=== PATIENT | female | born 1945 | race Caucasian/White ===

== ENCOUNTER 2021-08-31 11:47 | Inpatient (IN) ==
[2021-08-31 11:55] VITALS: BMI 37.4
--- NOTE | 2021-08-31 12:23 | DR.URIAD ---
HPI Time Seen Time Seen by Provider: 08/31/21 12:20 PCP Primary Care Physician: Chano HPI Comment HPI Comment: PATIENT WITH A HISTORY OF HYPERTENSION, CHRONIC SINUSITIS, COMPLAINS OF WORSENING DYSPNEA X 1 MONTH, NONPRODUCTIVE COUGH. DENIES FEVER, CHILLS, CHEST PAIN, ARTHRALGIA, DIAPHORESIS AND PALPITATIONS. Complaint Chief Complaint Doctors Comments: DYSPNEA FOR 1 MONTH Chief Complaint:: Pt c/o sinus infection x several months. She states she has had gradual onset of shortness of breath x 1 month. She also c/o nonproductive cough. COVID-19 Coronavirus risk:travel/contact w/high risk person: No Has patient experienced Coronavirus symptoms: Yes Coronavirus symptoms experienced: Fever and Shortness of Breath Reviewed Nurses Notes Reviewed: Yes Source History Provided: Patient Mode of Arrival Mode of Arrival: Wheelchair Timing Onset of Chief Complaint: 08/31/21 Quality Quality of Cough: Nonproductive Associated Signs and Symptoms Other Signs and Symptoms: Cough and Shortness of Breath PMH PMH Past Medical History: Yes Past Medical History: Hypertension Past Surgical History: Yes Surgical History: Ortho Surgery Family History History of Family Medical Conditions: Yes Family Medical History: Cancer Social History Does patient currently use any type of tobacco product: No Have you used tobacco products in the last 12 months: No Type of Tobacco Use: None Does any household member use tobacco: No Alcohol Use: None Do you use any recreational Drugs:: No Lives With: Alone Lives Where: Home Travel Risk Coronavirus risk:travel/contact w/high risk person: No Has patient experienced Coronavirus symptoms: Yes Coronavirus symptoms experienced: Fever and Shortness of Breath Infectious screening In the last 2 months have you had wt loss of >10#?: NO Have you had fever, night sweats or hemotysis?: No Have you traveled outside the country in the last 6 months?: No Isolation: Droplet ROS Review of Systems Constitutional: See HPI Eyes: No Symptoms Reported ENTM: No Symptoms Reported Respiratoy: See HPI, Dry Cough and Short of Breath Cardiovascular: No Symptoms Reported Gastrointestinal/Abdominal: No Symptoms Reported Genitourinary: No Symptoms Reported Neurological: No Symptoms Reported Musculoskeletal: No Symptoms Reported Integumentary: No Symptoms Reported Hematologic/Lymphatic: No Symptoms Reported Endocrine: No Symptoms Reported Psychiatric: No Symptoms Reported All Other Systems: Reviewed and Negative PE Vital Signs Vitals: Temperature 100.4 F Pulse Rate 87 Respiratory Rate 27 Blood Pressure 133/61 O2 Sat by Pulse Oximetry 100 General Limitations: No Limitations General Appearance: Alert and In Distress (MODERATE TACHYPNEA) Head Head Exam: Normal Inspection Eyes Eye exam: Normal Appearance and PERRL ENT ENT Exam: Normal Exam and Normal Oropharynx External Ear Exam: Normal External Inspection TM/Canal Exam: Bilateral: Normal Neck Neck Exam: Normal Inspection and Full ROM Chest Chest Inspection: Normal Inspection and Symmetric Chest Wall Rise Respiratory Respiratory Exam: Normal Lung Sounds Bilat and Other (MODERATE TACHYPNEA, LABORED BREATHING) Respiratory Exam: Bilateral: Decreased Breath Sounds Cardiovascular Cardiovascular Exam: Regular Rate, Normal Rhythm and Tachycardia Abdominal Exam Abdominal Exam: Normal Inspection and Normal Bowel Sounds Extremeties Extremities Exam: Normal Inspection and Full ROM Back Back Exam: Full ROM Neurologic Neurological Exam: Alert and Oriented X3 MDM Additional Information Findings: ACUTE DYSPNEA, PULMONARY EMBOLISM Differential Diagnosis Differential Diagnosis: Influenza A, Influenza B and Pneumonia COURSE Treatment Treatment: IV NORMAL SALINE 250ML/HR AFTER 2 SETS OF BLOOD CULTURES, ROCEPHIN 1GM, ZITHROMAX 500MG IVPB, SOLUMEDROL 125MG IV, CONTINUOUS DUO NEB AEROSOL FOR 1 HOUR Consultation Call Returned: 15:50 Consultation Comments: DISCUSSED FINDINGS WITH DR MOJICA FOR INPATIENT ADMISSION [facility] Labs Reviewed Laboratory Results Reviewed?: Yes Result Diagrams: 08/31/21 12:07 08/31/21 12:07 Laboratory: WBC 12.5 X10^3/uL (3.6-10.0) H 08/31/21 12:07 RBC 4.44 X10^6/uL (3.5-5.4) 08/31/21 12:07 Hgb 11.4 g/dL (12.0-16.0) L 08/31/21 12:07 Hct 34.5 % (36.0-47.0) L 08/31/21 12:07 MCV 77.6 fL (80.0-100.0) L 08/31/21 12:07 MCH 25.8 pg (27.0-34.0) L 08/31/21 12:07 MCHC 33.2 g/dL (33.0-35.0) 08/31/21 12:07 RDW 15.4 % (11.6-16.5) 08/31/21 12:07 Plt Count 480 X10^3/uL (150.0-450.0) H 08/31/21 12:07 MPV 6.9 fL (7.4-11.0) L 08/31/21 12:07 Neut % (Auto) 86.5 % (42.0-75.0) H 08/31/21 12:07 Lymph % (Auto) 5.1 % (21.0-51.0) L 08/31/21 12:07 [place] % (Auto) 5.6 % (0.0-13.0) 08/31/21 12:07 Eos % (Auto) 2.1 % (0.9-2.9) 08/31/21 12:07 Baso % (Auto) 0.7 % (0.2-1.0) 08/31/21 12:07 Neut # (Auto) 10.8 x10^3/uL (2.2-4.8) H 08/31/21 12:07 Lymph # (Auto) 0.6 X10^3/uL (1.3-2.9) L 08/31/21 12:07 [place] # (Auto) 0.7 x10^3/uL (0.3-0.8) 08/31/21 12:07 Eos # (Auto) 0.3 x10^3/uL (0.0-0.2) H 08/31/21 12:07 Baso # (Auto) 0.1 X10^3/uL (0.0-0.1) 08/31/21 12:07 Absolute Nucleated RBC 0.1 /100WBC 08/31/21 12:07 D-Dimer 2.29 ug/ml (0.0-0.57) H* 08/31/21 12:07 Sample Site Lrad 08/31/21 12:47 ABG pH 7.480 (7.35-7.45) H 08/31/21 12:47 ABG pCO2 31.0 mmHg (35.0-45.0) L 08/31/21 12:47 ABG pO2 49.0 mmHg (80.0-100.0) L* 08/31/21 12:47 ABG HCO3 23.1 mmol/L (22-26) 08/31/21 12:47 ABG O2 Saturation 87.0 % (90-100) L 08/31/21 12:47 ABG Base Excess 0.3 mmol/L (-2.0-2.0) 08/31/21 12:47 Hector Test Pos 08/31/21 12:47 A-a Gradient 62.0 mmHg 08/31/21 12:47 FiO2 21.0 08/31/21 12:47 Blood Gas Comments Pt maddy well elj cdn 08/31/21 12:47 Sodium 134 mmol/L (136-145) L 08/31/21 12:07 Corrected Sodium 134 mmol/L (136-145) L 08/31/21 12:07 Potassium 4.6 mmol/L (3.5-5.1) 08/31/21 12:07 Chloride 101 mmol/L (98-107) 08/31/21 12:07 Carbon Dioxide 25.0 mmol/L (21-32) 08/31/21 12:07 BUN 15 mg/dL (7-18) 08/31/21 12:07 Creatinine 0.92 mg/dL (0.55-1.02) 08/31/21 12:07 Est GFR (MDRD) Af Amer > 60 (>60) 08/31/21 12:07 Est GFR (MDRD) Non-Af > 60 (>60) 08/31/21 12:07 Glucose 117 mg/dL (65-99) H 08/31/21 12:07 Lactic Acid 0.9 mmol/L (0.4-2.0) 08/31/21 12:07 Calcium 9.2 mg/dL (8.5-10.1) 08/31/21 12:07 Corrected Calcium 9.8 mg/dL (8.5-10.1) 08/31/21 12:07 Magnesium 2.1 mg/dL (1.7-2.9) 08/31/21 12:07 Total Bilirubin 0.70 mg/dL (0.2-1.0) 08/31/21 12:07 AST 20 Units/L (15-37) 08/31/21 12:07 ALT 10 Units/L (12-78) L 08/31/21 12:07 Alkaline Phosphatase 97 Units/L (46-116) 08/31/21 12:07 Troponin I < 0.02 ng/mL (0-1.5) 08/31/21 12:07 Total Protein 7.8 g/dL (6.4-8.2) 08/31/21 12:07 Albumin 3.2 g/dL (3.4-5.0) L 08/31/21 12:07 Globulin 4.6 g/dL (2.5-4.5) H 08/31/21 12:07 Albumin/Globulin Ratio 0.7 Ratio (1.1-2.1) L 08/31/21 12:07 SARS-CoV-2 (PCR) Negative (NEGATIVE) 08/31/21 12:07 Influenza Type A (PCR) Negative (NEGATIVE) 08/31/21 12:07 Influenza Type B (PCR) Negative (NEGATIVE) 08/31/21 12:07 RSV (PCR) Negative (NEGATIVE) 08/31/21 12:07 XRAY XRAY Interpreted by: Radiologist (CTA CHEST IV CONTRAST-GROUND GLASS AIRSPACE OPACITIES IN BOTH LUNGS IN THE DISTRIBUTION OF FIBROTIC LUNG DISEASE, BULKY MEDIASTINAL /SUBCARINAL AND LEFT HILASR ADENOPATHY) X-ray Results: PORTABLE CHEST XRAY - DIFFUSE INFILTRATES RIGHT HEMITHORAX, LEFT BASILAR AND LINGULA INFILTRATES EKG Rate: 103 [place]: Normal and LAD Rhythm: NSR ST: Nonsp Opioid Opioid Risk Tool Age (Denis box if 16-45): No History of Preadolescent Sexual Abuse: No Total: 0 Total Score Risk Category: Low Risk Copyright: Harjeet HERNANDEZ predicting aberrant behaviors Diagnosis Discharge Problem: Acute dyspnea, Pneumonia Instructions Forms: Patient Portal
[2021-08-31] MEDS ORDERED: NS 1,000 ML IV 1,000 ML IV STA (12:28)
[2021-08-31 12:54] LABS: ABG BASE EXCESS 0.3 mmol/L (-2.0-2.0); ABG HCO3 23.1 mmol/L (22-26)
[2021-08-31 12:55] LABS: ABG ALLEN TEST POS
[2021-08-31 13:10] LABS: BASOPHILS # (AUTO) 0.1 X10^3/uL (0.0-0.1); BASOPHILS % (AUTO) 0.7 % (0.2-1.0); EOSINOPHILS # (AUTO) 0.3 x10^3/uL (0.0-0.2); EOSINOPHILS % (AUTO) 2.1 % (0.9-2.9); HEMATOCRIT 34.5 % (36.0-47.0); HEMOGLOBIN 11.4 g/dL (12.0-16.0); LYMPHOCYTES # (AUTO) 0.6 X10^3/uL (1.3-2.9); LYMPHOCYTES % (AUTO) 5.1 % (21.0-51.0); MEAN CORPUSCULAR HEMOGLOBIN 25.8 pg (27.0-34.0); MEAN CORPUSCULAR HGB CONC 33.2 g/dL (33.0-35.0); MEAN CORPUSCULAR VOLUME 77.6 fL (80.0-100.0); MEAN PLATELET VOLUME 6.9 fL (7.4-11.0); MONOCYTES # (AUTO) 0.7 x10^3/uL (0.3-0.8); MONOCYTES % (AUTO) 5.6 % (0.0-13.0); NEUTROPHILS # (AUTO) 10.8 x10^3/uL (2.2-4.8); NEUTROPHILS % (AUTO) 86.5 % (42.0-75.0); PLATELET COUNT 480 X10^3/uL (150.0-450.0); RED BLOOD COUNT 4.44 X10^6/uL (3.5-5.4); RED CELL DISTRIBUTION WIDTH 15.4 % (11.6-16.5); WHITE BLOOD COUNT 12.5 X10^3/uL (3.6-10.0)
[2021-08-31] MEDS ORDERED: NS 1,000 ML IV 1,000 ML ONE (13:15)
[2021-08-31] MEDS ORDERED: ROCEPHIN 1 GRAM IV PREMIX 1 G/50 ML IV.SOLN. IV ONE (13:15)
[2021-08-31 13:20] LABS: ALANINE AMINOTRANSFERASE 10 Units/L (12-78); ALBUMIN 3.2 g/dL (3.4-5.0); ALKALINE PHOSPHATASE 97 Units/L (46-116); ASPARTATE AMINO TRANSFERASE 20 Units/L (15-37); BLOOD UREA NITROGEN 15 mg/dL (7-18); CALCIUM 9.2 mg/dL (8.5-10.1); CHLORIDE 101 mmol/L (98-107); COR CA(FOR HYPOALB) 9.8 mg/dL (8.5-10.1); COR NA(FOR HYPERGLY) 134 mmol/L (136-145); CREATININE 0.92 mg/dL (0.55-1.02); MAGNESIUM 2.1 mg/dL (1.7-2.9); SODIUM 134 mmol/L (136-145); TOTAL PROTEIN 7.8 g/dL (6.4-8.2); TROPONIN I < 0.02 ng/mL (0-1.5); eGFR NON BLACK RACES > 60 (>60)
[2021-08-31] MEDS: ROCEPHIN VIAL 1 GRAM 1 G in NS 100 ML IV + SPIKE MINIBAG* 100 ML IV SCH (13:22)
[2021-08-31 13:33] LABS: LACTIC ACID 0.9 mmol/L (0.4-2.0)
--- NOTE | 2021-08-31 15:10 | RAD ---
HISTORYDYSPNEASTUDYCHEST, 1 VIEWCOMPARISONNo recent comparison studiesTECHNIQUEBaseline portable chest x-rayFINDINGSRestricted lung volumes are observed. Coarsened bilateral interstitial lung markings are demonstrated and there are hazy ground-glass and subpleural opacities in the bilateral lungs. The heart size and mediastinal contours are normal. Pleural spaces are clear. Fullness of the right hilar and paratracheal soft tissues noted.IMPRESSIONBaseline chest x-ray with restricted lung volumes, coarsened interstitial lung markings and hazy bilateral parenchymal/subpleural ground-glass opacities. These findings may be associated with any combination of chronic fibrous interstitial lung changes without or with superimposed acute atypical pneumonia depending on clinical presentation.Nonspecific right paratracheal/perihilar fullness. Adenopathy of this region possible.Consider follow-up CT of the chest for more detailed characterization.Electronically signed by: RENEE CAMERON (Aug 31, 2021 15:08:45)
--- NOTE | 2021-08-31 15:20 | CT ---
HISTORYDYSPNEA, SINUS TROUBLESTUDYCTA CHESTCOMPARISONChest radiograph, August 31, 2021TECHNIQUEAxial CT images of the chest were obtained after the administration of Omnipaque 350 IV contrast utilizing a CTA protocol. 3D MIPS were performed and reviewed for further evaluation.Radiation dose: 622.00 mGy-cm total DLPFINDINGSNo significant pericardial effusion.Bulky subcarinal lymph node measuring 3 x 2.3 cm on axial image 69.Enlarged right anterior paratracheal lymph node measuring 2.3 x 2.6 cm on axial image 45.Numerous enlarged mediastinal lymph nodes in addition with 2 mildly enlarged supraclavicular lymph nodes at the right neck base on axial image 6 and axial image 20.Enlarged bilateral hilar lymph nodes; largest on the left measuring 1.4 cm in short axis on axial image 65.Soft tissue density in the right hilar region surrounding the main and proximal lobar bronchi.Aorta is normal in caliber without dissection.Pulmonary arteries are normal in caliber without filling defects to suggest a pulmonary embolus.Airways are widely patent.Thyroid appears normal.No pleural effusion.Honeycombing at the periphery of both lungs in addition to diffuse increased interstitial markings.Ground-glass airspace opacities in both lungs which are most pronounced in the distribution of the fibrotic lung disease.No pneumothorax.Calcified gallstone in the dependent portion of the gallbladder with no overt imaging findings of acute cholecystitis.Mild splenomegaly.Tiny sliding type hiatal hernia.No acute osseous abnormality.Mild multilevel degenerative disc disease without vertebral body height loss.Multilevel mild central canal stenosis in the mid to lower thoracic spine secondary to calcification of the posterior longitudinal ligament.IMPRESSION1. No pulmonary embolus identified.2. Findings are consistent with chronic fibrosis.3. Ground-glass airspace opacities in both lungs which is more pronounced in the distribution of the fibrotic lung disease. Findings could represent an atypical/viral infectious process superimposed on chronic interstitial changes.4. Bulky mediastinal/subcarinal and left hilar adenopathy. Soft tissue density surrounding the right main and proximal lobar bronchi. Differential diagnosis includes a right mediastinal/hilar mass with metastatic lymph nodes. Differential diagnosis includes lymphoma and sarcoidosis. Recommend correlation with patient's known clinical history. If not previously characterized, a PET-CT is recommended for further characterization. Recommend pulmonary medicine consultation.5. Cholelithiasis with no imaging findings of acute cholecystitis.6. Tiny sliding type hiatal hernia.Electronically signed by: Sherman Phan (Aug 31, 2021 15:18:52)
[2021-08-31] MEDS ORDERED: DUONEB 0.5 MG/3 MG (3 mL) NEB ONE ×2 (15:35→15:43)
[2021-08-31] MEDS ORDERED: SOLU-Medrol 125 MG VIAL IVP ONE (15:43)
[2021-08-31] MEDS ORDERED: ZITHROMAX INJ 500 MG VIAL 500 MG in NS 250 ML IV 250 ML IV SCH (15:44)
[2021-08-31] MEDS ORDERED: SOLU-Medrol 125 MG VIAL ONE (16:03)
[2021-08-31] MEDS ORDERED: NS 250 ML IV 250 ML IV ONE (16:03)
[2021-08-31] MEDS ORDERED: ZITHROMAX INJ 500 MG VIAL IV ONE (16:03)
[2021-08-31] MEDS ORDERED: XOPENEX 1.25 MG/3 ML NEBULE NEB PRN (16:20)
[2021-08-31] MEDS ORDERED: TYLENOL 325 MG TAB PO PRN (16:20)
[2021-08-31] MEDS ORDERED: ROCEPHIN 1 GRAM IV PREMIX 1 G/50 ML IV.SOLN. IV SCH (16:20)
[2021-08-31] MEDS: ZITHROMAX INJ 500 MG VIAL 500 MG in D5W 250 ML IV 250 ML IV SCH (16:43)
[2021-08-31] MEDS ORDERED: DUONEB 0.5 MG/3 MG (3 mL) NEB SCH (17:00)
[2021-08-31] MEDS: NS 1,000 ML IV 1,000 ML IV SCH (17:36)
[2021-08-31 18:43] LABS: BILIRUBIN,URINE NEGATIVE (NEGATIVE); BLOOD/HEMOGLOBIN,URINE NEGATIVE (NEGATIVE); GLUCOSE, URINE NEGATIVE (NEGATIVE); KETONES,URINE 2+ (NEGATIVE); LEUKOCYTE ESTERASE ,URINE NEGATIVE (NEGATIVE); NITRITES,URINE NEGATIVE (NEGATIVE); PROTEIN,URINE 2+ (NEGATIVE); UROBILINOGEN,URINE NORMAL (NORMAL)
[2021-08-31 18:51] LABS: APPEARANCE,URINE CLEAR (CLEAR); BACTERIA,URINE NEGATIVE /HPF (NEGATIVE); COLOR,URINE YELLOW (YELLOW); RBC,URINE NONE SEEN /HPF (0-3); SQUAMOUS EPITHELIAL CELL,UR FEW /HPF (NEGATIVE)
[2021-08-31] MEDS ORDERED: PULMICORT NEB TX 0.5 MG NEB ONE (19:58)
[2021-08-31] MEDS ORDERED: SOLU-Medrol 40 MG VIAL ONE (20:58)
[2021-08-31] MEDS ORDERED: XOPENEX 1.25 MG/3 ML NEBULE NEB SCH (21:00)
[2021-08-31] MEDS: SOLU-Medrol 125 MG VIAL IVP SCH (21:17)
[2021-08-31] MEDS: PULMICORT NEB TX 0.5 MG NEB SCH (21:28)
[2021-09-01] MEDS: XOPENEX 1.25 MG/3 ML NEBULE NEB SCH ×4 (00:55→17:50)
[2021-09-01] MEDS: SOLU-Medrol 125 MG VIAL IVP SCH ×3 (05:41→21:00)
[2021-09-01 06:11] LABS: BASOPHILS % (AUTO) 0.2 % (0.2-1.0); HEMATOCRIT 30.8 % (36.0-47.0); HEMOGLOBIN 10.4 g/dL (12.0-16.0); LYMPHOCYTES # (AUTO) 0.4 X10^3/uL (1.3-2.9); LYMPHOCYTES % (AUTO) 6.7 % (21.0-51.0); MEAN CORPUSCULAR HEMOGLOBIN 25.9 pg (27.0-34.0); MEAN CORPUSCULAR HGB CONC 33.6 g/dL (33.0-35.0); MEAN CORPUSCULAR VOLUME 77.2 fL (80.0-100.0); MEAN PLATELET VOLUME 6.7 fL (7.4-11.0); MONOCYTES # (AUTO) 0.1 x10^3/uL (0.3-0.8); MONOCYTES % (AUTO) 1.2 % (0.0-13.0); NEUTROPHILS # (AUTO) 6.1 x10^3/uL (2.2-4.8); NEUTROPHILS % (AUTO) 91.9 % (42.0-75.0); PLATELET COUNT 408 X10^3/uL (150.0-450.0); RED CELL DISTRIBUTION WIDTH 15.2 % (11.6-16.5); WHITE BLOOD COUNT 6.6 X10^3/uL (3.6-10.0)
[2021-09-01 06:29] LABS: ALANINE AMINOTRANSFERASE 7 Units/L (12-78); ALBUMIN 2.7 g/dL (3.4-5.0); ALKALINE PHOSPHATASE 85 Units/L (46-116); ASPARTATE AMINO TRANSFERASE 18 Units/L (15-37); BLOOD UREA NITROGEN 16 mg/dL (7-18); CALCIUM 8.9 mg/dL (8.5-10.1); CARBON DIOXIDE 20.5 mmol/L (21-32); CHLORIDE 103 mmol/L (98-107); COR CA(FOR HYPOALB) 9.9 mg/dL (8.5-10.1); COR NA(FOR HYPERGLY) 136 mmol/L (136-145); CREATININE 0.76 mg/dL (0.55-1.02); SODIUM 135 mmol/L (136-145); TOTAL PROTEIN 7.1 g/dL (6.4-8.2); eGFR NON BLACK RACES > 60 (>60)
--- NOTE | 2021-09-01 07:04 | RAD ---
HISTORYSOBSTUDYCHEST, 1 VIEWCOMPARISONChest radiograph 08/31/2021.TECHNIQUEAP view of the chestFINDINGSThe cardiac silhouette is stably enlarged. Known mediastinal adenopathy. No significant change in diffuse bilateral airspace and interstitial opacities. Cannot exclude small pleural effusions. No pneumothorax.IMPRESSIONNo significant change.Electronically signed by: Chad Phillips (Sep 01, 2021 07:03:59)
[2021-09-01 07:23] LABS: BAND NEUTROPHILS % 1 % (0-10); PLATELET MORPHOLOGY COMMENT NORMAL (NORMAL)
[2021-09-01] MEDS: NS 1,000 ML IV 1,000 ML IV SCH ×3 (07:46→21:00)
[2021-09-01] MEDS: PREVACID PO SCH (08:35)
[2021-09-01] MEDS: ZITHROMAX INJ 500 MG VIAL 500 MG in D5W 250 ML IV 250 ML IV SCH (08:35)
[2021-09-01] MEDS: ROCEPHIN VIAL 1 GRAM 1 G in NS 100 ML IV + SPIKE MINIBAG* 100 ML IV SCH (08:36)
[2021-09-01] MEDS: PULMICORT NEB TX 0.5 MG NEB SCH ×2 (09:01→21:01)
[2021-09-01] MEDS: FORTAZ or TAZICEF VIAL INJ 1 G in NS 100 ML IV + SPIKE MINIBAG* 100 ML IV SCH ×3 (09:53→21:00)
[2021-09-01] MEDS: LEVAQUIN PREMIX IV 500 MG 500 MG/100 ML BAG IV SCH (09:53)
[2021-09-01] MEDS: LOVENOX INJ 40 MG SYR SC SCH (11:08)
[2021-09-01] MEDS ORDERED: ULTRAM PO PRN (11:50)
--- NOTE | 2021-09-01 11:50 | DR.H&P ---
H&P - History & Physical for Day of: H&P Date: 08/31/21 - Chief Complaint Chief Complaint: COUGH, SHORTNESS OF BREATH - History of Present Illness History of Present Illness: IS A 76 YEAR OLD PATIENT OF OURS. SHE PRESENTED TO THE ER WITH COMPLAINTS OF SHORTNESS OF BREATH AND A NON-PRODUCTIVE COUGH. SHE REPORTS THAT HER SYMPTOMS HAVE BEEN PRESENT FOR ABOUT A MONTH BUT HAVE PROGRESSVELY GOTTEN WORSE. SHE DENIES CHEST PAIN, ARTHRALGIA, DIAPHORESIS, OR PALPITATIONS. HER PMH INCLUDES HTN, CHRONIC SINUSITIS, AND GERD. ON ARRIVAL TO THE ER, VITALS WERE 100.4-107-24-65%-133/61. SHE WAS PLACED ON NON-REBREATHER AT 15 LPM. SATURATIONS INCREASED TO 100%. SHE WAS THEN TRANSFERRED TO NASAL CANNULA AT 2LPM. SATURATIONS REMAINED IN THE 90s. LABS WERE OBTAINED. WBC 12.5, HGB 11.4, HCT 34.5, PLT COUNT 480, D-DIMER 2.29, SODIUM 134, GLUCOSE 117, ALT 10, ALBUMIN 3.2, GLOBULIN 4.6. OTHERWISE, NORMAL. ABG REVEALED: PH 7.480, PC02 31, P02 49, HC03 23.1, 02 SAT 87, FI02 21.0 URINALYSIS UNREMARKABLE. COVID, INFLUENZA, RSV NEGATIVE. BLOOD CULTURES WERE SET UP. A CHEST XRAY WAS OBTAINED AND REVEALED: Baseline chest x-ray with restricted lung volumes, coarsened interstitial lung markings and hazy bilateral parenchymal/subpleural ground-glas s opacities. These findings may be associated with any combination of chronic fibrous interstitial lung changes without or with superimposed acute atypical pneumonia depending on clinical presentation. Nonspecific right paratracheal/perihilar fullness. Adenopathy of this region possible. A CHEST CTA WAS OBTAINED AND REVEALED: 1. No pulmonary embolus identified. 2. Findings are consistent with chronic fibrosis. 3. Ground-glass airspace opacities in both lungs which is more pronounced in the distribution of the fibrotic lung disease. Findings could represent an atypical/viral infectious process superimposed on chronic interstitial changes. 4. Bulky mediastinal/subcarinal and left hilar adenopathy. Soft tissue density surrounding the right main and proximal lobar bronchi. Differential diagnosis includes a right mediastinal/hilar mass with metastatic lymph nodes. Differential diagnosis includes lymphoma and sarcoidosis. Recommend correlation with patient's known clinical history. If not previously characterized, a PET-CT is recommended for further characterization. Recommend pulmonary medicine consultation. 5. Cholelithiasis with no imaging findings of acute cholecystitis. 6. Tiny sliding type hiatal hernia. EKG OBTAINED AND REVEALED: SINUS TACHYCARDIA WITH HR 103. IN THE ER, SHE WAS GIVEN ROCEPHIN 1G IV X 1, DUONEB X 1, SOLU-MEDROL 125MG IV X 1, ZITHROMAX 500MG IV X 1. SHE WAS ADMITTED TO THE HOSPTIAL FOR FURTHER EVALUATION AND TREATMENT OF BILATERAL PNEUMONIA AND ACUTE DYSPNEA. SHE WAS STARTED ON NS AT 75 ML/HR, FORTAZ 1G IV Q8H, LEVAQUIN 500MG IV DAILY, PULMICORT NEBS BID, XOPENEX NEBS Q6H, LOVENOX 40MG SC DAILY, SOLU-MEDROL 80MG IV Q8H, AND HER HOME MEDICATIONS WERE RESUMED. UPON DISCHARGE, WE WILL SCHEDULE A CONSULTATION WITH , ASSORTER REGARDING CHRONIC CT FINDINGS. OTHERWISE, WE PLAN TO FOLLOW UP WITH AM LABS AND CHEST XRAY AND CONTINUE TO MONITOR. TIME SPENT ON CLINICAL ASSESSMENT, REVIEWING LABS AND IMAGING, DECISION MAKING, AND DOCUMENTATION GREA TER THAN 75 MINUTES. - Past Medical History Past Medical History: Hypertension - Past Surgical History Surgical History: Hysterectomy, Ortho Surgery - Family History Family Medical History: Cancer - Social History Does patient currently use any type of tobacco product: No Have you used tobacco products in the last 12 months: No Type of Tobacco Use: Cigarettes How many years tobacco product used: 40 Does any household member use tobacco: No Alcohol Use: None Drug Use: None - Medications Home Medications: codeine Adverse Reaction (Verified 08/31/21 11:56) CONTINUE taking the following medications albuterol sulfate 1 inh INHALATION PRN PRN 08/31/21 [History] hydrochlorothiazide 25 mg PO DAILY 08/31/21 [History] lansoprazole 30 mg PO DAILY 08/31/21 [History] lisinopril 20 mg PO DAILY 08/31/21 [History] meloxicam 15 mg PO DAILY 08/31/21 [History] acetaminophen 500 mg PO DAILY PRN 09/01/21 [History] famotidine 20 mg PO DAILY 09/01/21 [History] tramadol 50 mg PO TID PRN 09/01/21 [History] - Review of Systems Constitutional: Fever, Weakness Eyes: No Symptoms Reported ENT: No Symptoms Reported Respiratory: See HPI, Cough, Shortness of Breath, SOB with Excertion, Wheezing Cardiovascular: No Symptoms Reported Gastrointestinal: No Symptoms Reported Genitourinary: No Symptoms Reported Musculoskeletal: No Symptoms Reported Skin: No Symptoms Reported Neurological: Weakness - Physical Exam Vital Signs: Temperature 97.9 F Pulse Rate [Left Radial] 88 Pulse Rate 84 Respiratory Rate 20 Blood Pressure [Left Arm] 188/74 Blood Pressure 133/61 O2 Sat by Pulse Oximetry 91 Oriented: Normal Eyes: Normal Ear: Normal Nose: Normal Throat: Normal Respiratory: Wheezes Throughout Cardiovascular: Tachycardia : Normal Auscultation: Bowel Sounds: Normal Palpation: Normal Tenderness: Normal Skin: Normal Musculoskeletal: Normal Psychiatric: Normal Mood Description: Calm Affect: Normal Speech Pattern: Clear - Assessment/Plan (1) Pneumonia Qualifiers: Pneumonia type: due to unspecified organism Laterality: unspecified laterality Lung location: unspecified part of lung Qualified Code(s): J18.9 - Pneumonia, unspecified organism Status: Acute Plan: ADMIT, NS AT 75 ML/HR, FORTAZ 1G IV Q8H, LEVAQUIN 500MG IV DAILY, PULMICORT NEBS BID, XOPENEX NEBS Q6H, LOVENOX 40MG SC DAILY, SOLU-MEDROL 80MG IV Q8H, AND HER HOME MEDICATIONS WERE RESUMED. (2) Acute dyspnea Status: Acute - Allergies Allergies/Adverse Reactions: Allergies Allergy/AdvReac Type Severity Reaction Status Date / Time codeine AdvReac Verified 08/31/21 11:56
[2021-09-01] MEDS: ZESTRIL TAB 20 MG PO SCH (12:14)
[2021-09-01] MEDS: HYDROCHLOROTHIAZIDE 25 MG TAB PO SCH (12:14)
[2021-09-01] MEDS: PEPCID TAB 20 MG PO SCH (12:14)
[2021-09-01] MEDS ORDERED: ZESTRIL TAB 20 MG ONE (12:15)
[2021-09-02] MEDS: XOPENEX 1.25 MG/3 ML NEBULE NEB SCH ×4 (00:13→17:30)
[2021-09-02] MEDS: NS 1,000 ML IV 1,000 ML IV SCH ×2 (04:27→11:48)
[2021-09-02] MEDS: SOLU-Medrol 125 MG VIAL IVP SCH ×3 (05:52→21:04)
[2021-09-02] MEDS: FORTAZ or TAZICEF VIAL INJ 1 G in NS 100 ML IV + SPIKE MINIBAG* 100 ML IV SCH ×3 (05:52→21:04)
[2021-09-02 06:30] LABS: BASOPHILS % (AUTO) 0.3 % (0.2-1.0); HEMATOCRIT 32.5 % (36.0-47.0); HEMOGLOBIN 10.6 g/dL (12.0-16.0); LYMPHOCYTES # (AUTO) 0.4 X10^3/uL (1.3-2.9); LYMPHOCYTES % (AUTO) 3.5 % (21.0-51.0); MEAN CORPUSCULAR HEMOGLOBIN 25.3 pg (27.0-34.0); MEAN CORPUSCULAR HGB CONC 32.7 g/dL (33.0-35.0); MEAN CORPUSCULAR VOLUME 77.3 fL (80.0-100.0); MEAN PLATELET VOLUME 6.9 fL (7.4-11.0); MONOCYTES # (AUTO) 0.4 x10^3/uL (0.3-0.8); MONOCYTES % (AUTO) 3.9 % (0.0-13.0); NEUTROPHILS # (AUTO) 10.3 x10^3/uL (2.2-4.8); NEUTROPHILS % (AUTO) 92.3 % (42.0-75.0); PLATELET COUNT 529 X10^3/uL (150.0-450.0); RED BLOOD COUNT 4.21 X10^6/uL (3.5-5.4); RED CELL DISTRIBUTION WIDTH 15.3 % (11.6-16.5); WHITE BLOOD COUNT 11.1 X10^3/uL (3.6-10.0)
[2021-09-02 06:32] LABS: ALANINE AMINOTRANSFERASE 13 Units/L (12-78); ALBUMIN 2.9 g/dL (3.4-5.0); ALKALINE PHOSPHATASE 97 Units/L (46-116); ASPARTATE AMINO TRANSFERASE 18 Units/L (15-37); BLOOD UREA NITROGEN 15 mg/dL (7-18); CALCIUM 9.2 mg/dL (8.5-10.1); CARBON DIOXIDE 24.7 mmol/L (21-32); CHLORIDE 101 mmol/L (98-107); COR CA(FOR HYPOALB) 10.1 mg/dL (8.5-10.1); COR NA(FOR HYPERGLY) 139 mmol/L (136-145); CREATININE 0.95 mg/dL (0.55-1.02); SODIUM 137 mmol/L (136-145); TOTAL PROTEIN 7.2 g/dL (6.4-8.2); eGFR NON BLACK RACES > 60 (>60)
[2021-09-02 06:39] LABS: ABG ALLEN TEST POS; ABG BASE EXCESS 0.8 mmol/L (-2.0-2.0); ABG HCO3 25.3 mmol/L (22-26)
--- NOTE | 2021-09-02 07:17 | RAD ---
HISTORYSOBSTUDYCHEST, 1 INKNKDHURISEAR34/07/2021.TECHNIQUEAP view of the chestFINDINGSCardiac and mediastinal contours are within normal limits. No significant change in diffuse bilateral airspace opacities. No definite pleural effusion or pneumothorax. Soft tissue attenuation limits evaluation.IMPRESSIONNo significant change.Electronically signed by: Chad Phillips (Sep 02, 2021 07:16:29)
[2021-09-02 07:43] LABS: PLATELET MORPHOLOGY COMMENT NORMAL (NORMAL)
[2021-09-02 07:51] LABS: MICROCYTOSIS SLIGHT
[2021-09-02] MEDS ORDERED: ZESTRIL TAB 20 MG ONE (08:22)
[2021-09-02] MEDS: LEVAQUIN PREMIX IV 500 MG 500 MG/100 ML BAG IV SCH (08:39)
[2021-09-02] MEDS: LOVENOX INJ 40 MG SYR SC SCH (08:39)
[2021-09-02] MEDS: ZESTRIL TAB 20 MG PO SCH (08:39)
[2021-09-02] MEDS: HYDROCHLOROTHIAZIDE 25 MG TAB PO SCH (08:39)
[2021-09-02] MEDS: PEPCID TAB 20 MG PO SCH (08:40)
[2021-09-02] MEDS: PREVACID PO SCH (08:40)
[2021-09-02] MEDS: PULMICORT NEB TX 0.5 MG NEB SCH ×2 (09:08→20:24)
--- NOTE | 2021-09-02 10:09 | PCM.PROG ---
Progress Note - Progress Note for Day of Date of Exam: 09/02/21 - Subjective Subjective: WAS ADMITTED FOR TREATMENT OF PNEUMONIA AND ACUTE DYSPNEA. CHEST CTA ALSO REVEALED CHRONIC FIBROSIS. TODAY, SHE IS ALERT AND ORIENTED, LYING IN BED ON MORNING ROUNDS. HER BREATHING DOES APPEAR TO BE MORE LABORED THIS MORNING. UPON ENTERING THE ROOM, SHE IS NOTED TO BED ON NASAL CANNULA WITH OXYGEN AT 6 LITERS/MINUTE. HER SATURATIONS ARE 80%. AFTER ENCOURAGING DEEP BREATHS THROUGH THE NOSE, HER SATURATIONS INCREASED TO THE 90s. STAFF REPORTS THAT HER SATURATIONS DID DECREASE TO THE 70s WHILE AMBULATING THIS MORNING, BUT RECOVERED TO THE 90s WHEN PATIENT WAS PLACED BACK IN BED AND OXYGEN WAS INCREASED. PATIENT REPORTS BEING UNABLE TO SLEEP OR REST WELL THROUGHOUT THE NIGHT. ON EXAMINATION, HEART IS REGULAR IN RATE AND RHYTHM. BILATERAL LUNGS ARE NOTED WITH SCATTERED WHEEZING, DIMINISHED. ABDOMEN IS ROUND, SOFT, AND NON- TENDER WITH NORMAL BOWEL SOUNDS NOTED IN ALL QUADRANTS. HER VITALS THIS MORNING WERE: 97.5-96-26-90%NC-130/79. LABS WERE OBTAINED. WBC 11.1, HGB 10.6, HCT 32.5, PLT COUNT 529, POTASSIUM 3.4, SODIUM 137, BUN 15, CREATININE 0.95, GLUCOSE 172, ALBUMIN 2.96. BLOOD AND URINE CULTURES ARE PENDING. CHEST XRAY REVEALED: Cardiac and mediastinal contours are within normal limits. No significant change in diffuse bilateral airspace opacities. No definite pleural effusion or pneumothorax. Soft tissue attenuation limits evaluation. SHE IS CURRENTLY RECEIVING NS AT 75 ML/HR, FORTAZ 1G IV Q8H, LEVAQUIN 500MG IV DAILY, PULMICORT NEBS BID, XOPENEX NEBS Q6H, LOVENOX 40MG SC DAILY, SOLU-MEDROL 80MG IV Q8H, AND HER HOME MEDICATIONS WERE RESUMED. WE WILL HAVE HER FOLLOW UP WITH A FOOD STAND MANAGER AFTER DISCHARGE DUE TO FIBROUS CHANGES. SHE WILL REQUIRE HOME OXYGEN. WE WILL ADD KLONOPIN 0.5MG PO HS TO HELP HER REST. OTHERWISE, WE PLAN TO FOLLOW UP WITH AM LABS AND CHEST XRAY AND CONTINUE TO MONITOR. TIME SPENT ON CLINICAL ASSESSMENT, REVIEWING LABS AND IMAGING, DECISION MAKING, AND DOCUMENTATION GREATER THAN 45 MINUTES. - Past Medical Family Social History Past Med/Fam/Surg Hx: No changes since H&P Allergies: Allergies codeine Adverse Reaction (Verified 08/31/21 11:56) - Review of Systems ROS: No change since H&P - Vital Signs and I&O's Vital Signs: Temperature 97.5 F Pulse Rate [Left Radial] 96 Pulse Rate 78 Respiratory Rate 26 Blood Pressure [Left Arm] 130/79 Blood Pressure 133/61 O2 Sat by Pulse Oximetry 99 Intake and Output: Intake & Output 08/30/21 08/31/21 09/01/21 09/02/21 11:59 11:59 11:59 11:59 Intake Total 2498 / 2498 4436 / 4436 Balance 2498 / 2498 4436 / 4436 - Physical Exam Oriented: Normal Eyes: Normal Ear: Normal Nose: Normal Throat: Normal Respiratory: Generalized, Diminished, Wheezes Cardiovascular: Normal : Normal Auscultation: Bowel Sounds: Normal Palpation: Normal Tenderness: Normal Skin: Normal Musculoskeletal: Normal Psychiatric: Normal Mood Description: Calm Affect: Normal Speech Pattern: Clear, Appropriate - Laboratory and Diagnostics Result Diagrams: 09/02/21 05:21 09/02/21 05:21 Labs: 08/31/21 12:55 Blood Blood Culture - Preliminary 08/31/21 12:45 Blood Blood Culture - Preliminary Laboratory WBC 11.1 X10^3/uL (3.6-10.0) H 09/02/21 05:21 RBC 4.21 X10^6/uL (3.5-5.4) 09/02/21 05:21 Hgb 10.6 g/dL (12.0-16.0) L 09/02/21 05:21 Hct 32.5 % (36.0-47.0) L 09/02/21 05:21 MCV 77.3 fL (80.0-100.0) L 09/02/21 05:21 MCH 25.3 pg (27.0-34.0) L 09/02/21 05:21 MCHC 32.7 g/dL (33.0-35.0) L 09/02/21 05:21 RDW 15.3 % (11.6-16.5) 09/02/21 05:21 Plt Count 529 X10^3/uL (150.0-450.0) H 09/02/21 05:21 Plt Count Comment Increased (ADEQUATE) A 09/02/21 05:21 MPV 6.9 fL (7.4-11.0) L 09/02/21 05:21 Neut % (Auto) 92.3 % (42.0-75.0) H 09/02/21 05:21 Lymph % (Auto) 3.5 % (21.0-51.0) L 09/02/21 05:21 Door % (Auto) 3.9 % (0.0-13.0) 09/02/21 05:21 Eos % (Auto) 0.0 % (0.9-2.9) L 09/02/21 05:21 Baso % (Auto) 0.3 % (0.2-1.0) 09/02/21 05:21 Neut # (Auto) 10.3 x10^3/uL (2.2-4.8) H 09/02/21 05:21 Lymph # (Auto) 0.4 X10^3/uL (1.3-2.9) L 09/02/21 05:21 Door # (Auto) 0.4 x10^3/uL (0.3-0.8) 09/02/21 05:21 Eos # (Auto) 0.0 x10^3/uL (0.0-0.2) 09/02/21 05:21 Baso # (Auto) 0.0 X10^3/uL (0.0-0.1) 09/02/21 05:21 Absolute Nucleated RBC 0.1 /100WBC 09/02/21 05:21 Total Counted 100 09/02/21 05:21 Neutrophils % (Manual) 91 % (39-76) H 09/02/21 05:21 Band Neutrophils % 1 % (0-10) 09/01/21 05:10 Lymphocytes % (Manual) 7 % (13-43) L 09/02/21 05:21 Monocytes % (Manual) 2 % (4-9) L 09/02/21 05:21 Plt Morphology Comment Normal (NORMAL) 09/02/21 05:21 RBC Morphology Abnormal (NORMAL) A 09/02/21 05:21 Microcytosis Slight A 09/02/21 05:21 D-Dimer 2.29 ug/ml (0.0-0.57) H* 08/31/21 12:07 Sample Site Lrad 09/02/21 05:21 ABG pH 7.420 (7.35-7.45) 09/02/21 05:21 ABG pCO2 39.0 mmHg (35.0-45.0) 09/02/21 05:21 ABG pO2 154.0 mmHg (80.0-100.0) H 09/02/21 05:21 ABG HCO3 25.3 mmol/L (22-26) 09/02/21 05:21 ABG O2 Saturation 99.0 % (90-100) 09/02/21 05:21 ABG Base Excess 0.8 mmol/L (-2.0-2.0) 09/02/21 05:21 Hector Test Pos 09/02/21 05:21 A-a Gradient 510.0 mmHg 09/02/21 05:21 FiO2 100.0 09/02/21 05:21 Blood Gas Comments Ashley well ms 09/02/21 05:21 Sodium 137 mmol/L (136-145) 09/02/21 05:21 Corrected Sodium 139 mmol/L (136-145) 09/02/21 05:21 Potassium 3.4 mmol/L (3.5-5.1) L 09/02/21 05:21 Chloride 101 mmol/L (98-107) 09/02/21 05:21 Carbon Dioxide 24.7 mmol/L (21-32) 09/02/21 05:21 BUN 15 mg/dL (7-18) 09/02/21 05:21 Creatinine 0.95 mg/dL (0.55-1.02) 09/02/21 05:21 Est GFR (MDRD) Af Amer > 60 (>60) 09/02/21 05:21 Est GFR (MDRD) Non-Af > 60 (>60) 09/02/21 05:21 Glucose 172 mg/dL (65-99) H 09/02/21 05:21 Lactic Acid 0.9 mmol/L (0.4-2.0) 08/31/21 12:07 Calcium 9.2 mg/dL (8.5-10.1) 09/02/21 05:21 Corrected Calcium 10.1 mg/dL (8.5-10.1) 09/02/21 05:21 Magnesium 2.1 mg/dL (1.7-2.9) 08/31/21 12:07 Total Bilirubin 0.30 mg/dL (0.2-1.0) 09/02/21 05:21 AST 18 Units/L (15-37) 09/02/21 05:21 ALT 13 Units/L (12-78) 09/02/21 05:21 Alkaline Phosphatase 97 Units/L (46-116) 09/02/21 05:21 Troponin I < 0.02 ng/mL (0-1.5) 08/31/21 12:07 Total Protein 7.2 g/dL (6.4-8.2) 09/02/21 05:21 Albumin 2.9 g/dL (3.4-5.0) L 09/02/21 05:21 Globulin 4.3 g/dL (2.5-4.5) 09/02/21 05:21 Albumin/Globulin Ratio 0.7 Ratio (1.1-2.1) L 09/02/21 05:21 Specimen Type Clean catch urine 08/31/21 18:32 Urine Color Yellow (YELLOW) 08/31/21 18:32 Urine Appearance Clear (CLEAR) 08/31/21 18:32 Urine pH 5.0 (5.0 - 8.0) 08/31/21 18:32 Ur Specific [place] 1.010 (1.000-1.030) 08/31/21 18:32 Urine Protein 2+ (NEGATIVE) 08/31/21 18:32 Urine Glucose (UA) Negative (NEGATIVE) 08/31/21 18:32 Urine Ketones 2+ (NEGATIVE) 08/31/21 18:32 Urine Occult Blood Negative (NEGATIVE) 08/31/21 18:32 Urine Nitrite Negative (NEGATIVE) 08/31/21 18:32 Urine Bilirubin Negative (NEGATIVE) 08/31/21 18:32 Urine Urobilinogen Normal (NORMAL) 08/31/21 18:32 Ur Leukocyte Esterase Negative (NEGATIVE) 08/31/21 18:32 Urine RBC None seen /HPF (0-3) 08/31/21 18:32 Urine WBC None seen /HPF (0-5) 08/31/21 18:32 Ur Squamous Epith Cells Few /HPF (NEGATIVE) 08/31/21 18:32 Urine Bacteria Negative /HPF (NEGATIVE) 08/31/21 18:32 Ur Culture Indicated? No/not indicated 08/31/21 18:32 SARS-CoV-2 (PCR) Negative (NEGATIVE) 08/31/21 12:07 Influenza Type A (PCR) Negative (NEGATIVE) 08/31/21 12:07 Influenza Type B (PCR) Negative (NEGATIVE) 08/31/21 12:07 RSV (PCR) Negative (NEGATIVE) 08/31/21 12:07 - Plan (1) Pneumonia Status: Acute Qualifiers: Pneumonia type: due to unspecified organism Laterality: unspecified laterality Lung location: unspecified part of lung Qualified Code(s): J18.9 - Pneumonia, unspecified organism Plan: NS AT 75 ML/HR, FORTAZ 1G IV Q8H, LEVAQUIN 500MG IV DAILY, PULMICORT NEBS BID, XOPENEX NEBS Q6H, LOVENOX 40MG SC DAILY, SOLU-MEDROL 80MG IV Q8H, AND HER HOME MEDICATIONS WERE RESUMED. (2) Acute dyspnea Status: Acute (3) Chronic fibrosis of lung Status: Acute
[2021-09-02] MEDS: ZOFRAN INJ 4 MG VIAL IVP PRN (13:06)
[2021-09-02] MEDS ORDERED: MICRO K EXTEN CAP 10 MEQ PO PRN (19:05)
[2021-09-02] MEDS ORDERED: KLOR-CON PO PRN (19:05)
[2021-09-02] MEDS ORDERED: K-DUR TAB 20 MEQ PO PRN (19:05)
[2021-09-02] MEDS ORDERED: POTASSIUM CHL 60 MEQ/NS 0.45% 500 ML IV PRN (19:05)
[2021-09-02] MEDS ORDERED: POTASSIUM CHL 40 MEQ/NS 0.45% 500 ML IV PRN (19:05)
[2021-09-02] MEDS ORDERED: MAGNESIUM SULFATE 1 GRAM/100 mL PREMIX 1 G/100 ML BAG IV PRN (19:05)
[2021-09-02] MEDS ORDERED: POTASSIUM CHLORIDE LIQ 20 MEQ UDC PO PRN (19:05)
[2021-09-02] MEDS ORDERED: K-RIDER 10 MEQ/NS 100 ML 10 MEQ/100 ML BAG IV PRN (19:05)
[2021-09-02] MEDS ORDERED: KLONOPIN TAB 0.5 MG PO SCH (21:00)
[2021-09-02] MEDS: KLONOPIN TAB 0.5 MG PO PRN (21:29)
[2021-09-03] MEDS: XOPENEX 1.25 MG/3 ML NEBULE NEB SCH ×3 (00:25→12:00)
[2021-09-03] MEDS: NS 1,000 ML IV 1,000 ML IV SCH (00:54)
[2021-09-03] MEDS: FORTAZ or TAZICEF VIAL INJ 1 G in NS 100 ML IV + SPIKE MINIBAG* 100 ML IV SCH ×2 (05:34→14:28)
[2021-09-03] MEDS: SOLU-Medrol 125 MG VIAL IVP SCH ×2 (05:34→14:28)
[2021-09-03] MEDS: ZOFRAN INJ 4 MG VIAL IVP PRN (06:18)
[2021-09-03 06:20] LABS: BASOPHILS % (AUTO) 0.2 % (0.2-1.0); HEMATOCRIT 29.8 % (36.0-47.0); HEMOGLOBIN 9.8 g/dL (12.0-16.0); LYMPHOCYTES # (AUTO) 0.4 X10^3/uL (1.3-2.9); LYMPHOCYTES % (AUTO) 3.4 % (21.0-51.0); MEAN CORPUSCULAR HEMOGLOBIN 25.3 pg (27.0-34.0); MEAN CORPUSCULAR HGB CONC 32.7 g/dL (33.0-35.0); MEAN CORPUSCULAR VOLUME 77.2 fL (80.0-100.0); MEAN PLATELET VOLUME 6.6 fL (7.4-11.0); MONOCYTES # (AUTO) 0.7 x10^3/uL (0.3-0.8); MONOCYTES % (AUTO) 6.2 % (0.0-13.0); NEUTROPHILS # (AUTO) 10.7 x10^3/uL (2.2-4.8); NEUTROPHILS % (AUTO) 90.2 % (42.0-75.0); PLATELET COUNT 453 X10^3/uL (150.0-450.0); RED BLOOD COUNT 3.86 X10^6/uL (3.5-5.4); RED CELL DISTRIBUTION WIDTH 15.6 % (11.6-16.5); WHITE BLOOD COUNT 11.9 X10^3/uL (3.6-10.0)
[2021-09-03 06:41] LABS: ALANINE AMINOTRANSFERASE 10 Units/L (12-78); ALBUMIN 2.6 g/dL (3.4-5.0); ALKALINE PHOSPHATASE 95 Units/L (46-116); ASPARTATE AMINO TRANSFERASE 16 Units/L (15-37); BLOOD UREA NITROGEN 15 mg/dL (7-18); CALCIUM 8.9 mg/dL (8.5-10.1); CARBON DIOXIDE 26.7 mmol/L (21-32); CHLORIDE 103 mmol/L (98-107); COR NA(FOR HYPERGLY) 139 mmol/L (136-145); CREATININE 0.73 mg/dL (0.55-1.02); MAGNESIUM 2.3 mg/dL (1.7-2.9); SODIUM 138 mmol/L (136-145); TOTAL PROTEIN 6.5 g/dL (6.4-8.2); eGFR NON BLACK RACES > 60 (>60)
--- NOTE | 2021-09-03 06:55 | RAD ---
HISTORYSOBSTUDYCHEST, 1 [id number]/2021.TECHNIQUEAP view of the chestFINDINGSThe cardiac silhouette is stably enlarged. Mediastinal contours appear stable. No significant change in diffuse bilateral airspace opacities. No definite pleural effusion or pneumothorax.IMPRESSIONNo significant change.Electronically signed by: Chad Phillips (Sep 03, 2021 06:53:44)
[2021-09-03 07:16] LABS: HYPOCHROMASIA SLIGHT; MICROCYTOSIS SLIGHT; PLATELET MORPHOLOGY COMMENT NORMAL (NORMAL)
[2021-09-03 08:49] LABS: ABG BASE EXCESS 3.2 mmol/L (-2.0-2.0); ABG HCO3 26.9 mmol/L (22-26)
[2021-09-03 08:50] LABS: ABG ALLEN TEST POS
[2021-09-03] MEDS: PULMICORT NEB TX 0.5 MG NEB SCH (09:05)
[2021-09-03] MEDS ORDERED: ZESTRIL TAB 20 MG ONE (09:48)
[2021-09-03] MEDS: KLONOPIN TAB 0.5 MG PO PRN (09:50)
[2021-09-03] MEDS: PREVACID PO SCH (10:06)
[2021-09-03] MEDS: PEPCID TAB 20 MG PO SCH (10:06)
[2021-09-03] MEDS: LEVAQUIN PREMIX IV 500 MG 500 MG/100 ML BAG IV SCH (10:06)
[2021-09-03] MEDS: HYDROCHLOROTHIAZIDE 25 MG TAB PO SCH (10:06)
[2021-09-03] MEDS: LOVENOX INJ 40 MG SYR SC SCH (10:06)
[2021-09-03] MEDS: ZESTRIL TAB 20 MG PO SCH (10:07)
[2021-09-03 12:11] VITALS: BP 120/73
== END 2021-09-03 15:40 | disposition short-term general hospital (02) | DRG 195 ==
LOC: ER 11:47 → MED/SURG 16:20
PROVIDERS: ADMIT Internal Medicine; ATTEND Internal Medicine
DX: J84.10 Pulmonary fibrosis, unspecified; J18.8 Other pneumonia, unspecified organism; R06.02 Shortness of breath; K44.9 Diaphragmatic hernia without obstruction or gangrene; K21.9 Gastro-esophageal reflux disease without esophagitis; I10 Essential (primary) hypertension; Z20.822 Contact with and (suspected) exposure to COVID-19